=== PATIENT | female | born 1980 | race Caucasian/White ===

== ENCOUNTER 2021-04-09 23:56 | Emergency (ER) | payer MEDICAID ==
[2021-04-10 00:14] VITALS: BP 153/87; PULSE 110
[2021-04-10] MEDS ORDERED: LORazepam 1 MG Tab PO ONE (00:31)
--- NOTE | 2021-04-10 01:07 | EDM.PDOCBH ---
ED HPI GENERAL MEDICAL PROBLEM - General Chief Complaint: Behavioral/Psych Stated Complaint: [facility] Time Seen by Provider: 04/10/21 00:25 Source of Information: Reports: Patient - History of Present Illness INITIAL COMMENTS - FREE TEXT/NARRATIVE: 40 yr old female has been drinking, got in to a bit of an argument with "her girlfriend". Started thinking "bad thoughts" that than went into a panic attack. Still having some numbness of both hands on arrival to ED. No chest pain. Has not otherwise been ill. 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: Reports: Other (see below) Other 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: duoNeb - Related Data Allergies Allergy/AdvReac Type Severity Reaction Status Date / Time Penicillins Allergy Respiratory Verified 04/10/21 00:14 Distress Home Meds: Home Meds Albuterol [Proair HFA] 2 puff INH Q4HR PRN #1 inhaler 12/29/14 [Rx] FLUoxetine [PROzac] 20 mg PO DAILY 04/10/21 [History] QUEtiapine [SEROquel] 100 mg PO DAILY 04/10/21 [History] Testosterone Cypionate [Depo-Testosterone] 200 injection IM WEEKLY 04/10/21 [History] Past Medical History HEENT History: Reports: Other (See Below) Other HEENT History: poor dentition 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: 2 c section Psychiatric History: Reports: Anxiety, Depression, Panic Attack - Past Surgical History Other Musculoskeletal Surgeries/Procedures:: carpal tunnel surgery Social & Family History - Tobacco Use Tobacco Use Status *Q: Never Tobacco User Second Hand Smoke Exposure: No - Caffeine Use Caffeine Use: Reports: Energy Drinks - Recreational Drug Use Recreational Drug Use: No ED ROS GENERAL - Review of Systems Review Of Systems: See Below Constitutional: Reports: No Symptoms HEENT: Reports: No Symptoms Respiratory: Reports: Shortness of Breath (now better) Cardiovascular: Denies: Chest Pain GI/Abdominal: Denies: Abdominal Pain, Nausea, Vomiting Musculoskeletal: Reports: No Symptoms Skin: Reports: No Symptoms Neurological: Reports: Numbness Psychiatric: Reports: Anxiety ED EXAM, BEHAVIORAL HEALTH - Physical Exam Exam: See Below General Appearance: Alert, No Apparent Distress (at time of my exam, no longer hyperventilating like she was on arrival to ED) Eye Exam: Bilateral Eye: PERRL Head: Atraumatic Respiratory/Chest: No Respiratory Distress (at time of my exam) Cardiovascular: Tachycardia GI/Abdominal: Non-Tender Extremities: Normal Inspection. No: Pedal Edema Neurological: Alert, No Motor/Sensory Deficits COURSE, BEHAVIORAL HEALTH COMP - Course Vital Signs: Last Vital Signs Temp 97.0 F 04/10/21 00:06 Pulse 110 H 04/10/21 00:06 Resp 32 H 04/10/21 00:06 BP 153/87 H 04/10/21 00:06 Pulse Ox 96 04/10/21 00:06 Orders, Labs, Meds: Medications Discontinued Medications Generic Name Dose Route Start Last Admin Trade Name Rambo PRN Reason Stop Dose Admin Lorazepam 0.5 mg 04/10/21 00:31 04/10/21 00:40 Lorazepam 1 Mg Tab PO 04/10/21 00:32 0.5 mg ONETIME ONE Administration Departure - Departure Time of Disposition: 01:22 Disposition: Home, Self-Care 01 Clinical Impression: Panic attack Alcohol intoxication Qualifiers: Complication of substance-induced condition: uncomplicated Qualified Code(s): F10.920 - Alcohol use, unspecified with intoxication, uncomplicated - Discharge Information Referrals: Mellisa Villarreal NP [Primary Care Provider] - Forms: ED Department Discharge Additional Instructions: Rest. Continue current meds. Follow up clinic as needed. Sepsis Event Note (ED) - Evaluation Sepsis Screening Result: No Definite Risk - Focused Exam Vital Signs: Vital Signs Temp Pulse Resp BP Pulse Ox 04/10/21 00:06 97.0 F 110 H 32 H 153/87 H 96
== END 2021-04-10 01:25 | disposition home or self-care (01) ==
LOC: JD.ED 23:56
DX: F10.129 Alcohol abuse with intoxication, unspecified (principal); F41.0 Panic disorder [episodic paroxysmal anxiety]; Z88.0 Allergy status to penicillin
CPT/HCPCS: 99284; A9270; 99283

== ENCOUNTER 2021-09-24 00:57 | Emergency (ER) | payer MEDICAID ==
[2021-09-24 01:31] VITALS: BP 154/89; PULSE 103
[2021-09-24] MEDS ORDERED: Ketorolac 15 MG/ML SDV IM ONE (02:00)
[2021-09-24] MEDS ORDERED: Bupivacaine 0.5% 10 ML SDV INJECT ONE (02:11)
[2021-09-24] MEDS ORDERED: Ketorolac 30 MG/ML SDV ONE (02:15)
[2021-09-24] MEDS ORDERED: Ketorolac 30 MG/ML SDV IM ONE (02:16)
== END 2021-09-24 03:12 | disposition home or self-care (01) ==
LOC: JD.ED 00:57
DX: K13.0 Diseases of lips (principal); J45.909 Unspecified asthma, uncomplicated; F17.210 Nicotine dependence, cigarettes, uncomplicated; Z90.49 Acquired absence of other specified parts of digestive tract; Z88.0 Allergy status to penicillin; Z79.899 Other long term (current) drug therapy
CPT/HCPCS: 10060; 87070; 87075; 87205; 96372; 99283; J1885; J3490

== ENCOUNTER 2022-02-27 19:37 | Emergency (ER) | payer MEDICAID ==
[2022-02-27 19:51] VITALS: BP 159/97; PULSE 73
== END 2022-02-27 20:40 | disposition left against medical advice (07) ==
LOC: JD.ED 19:37
DX: Z53.21 Procedure and treatment not carried out due to patient leaving prior to being seen by health care provider (principal)

== ENCOUNTER 2022-02-28 04:38 | Emergency (ER) | payer MEDICAID ==
[2022-02-28 04:52] VITALS: BP 157/106; PULSE 73
[2022-02-28] MEDS ORDERED: HYDROmorphone 1 MG/ML Syringe IM ONE (04:55)
[2022-02-28] MEDS ORDERED: Ketorolac 60 MG/2 ML SDV IM ONE (04:55)
== END 2022-02-28 05:56 | disposition home or self-care (01) ==
LOC: JD.ED 04:38
DX: K02.9 Dental caries, unspecified (principal); J45.909 Unspecified asthma, uncomplicated; Z72.0 Tobacco use; Z79.899 Other long term (current) drug therapy; Z88.0 Allergy status to penicillin
CPT/HCPCS: 64400; 96372; 99283; J1170; J1885

== ENCOUNTER 2022-03-01 01:24 | Emergency (ER) | payer MEDICAID ==
[2022-03-01 01:50] VITALS: BP 171/77; PULSE 59
[2022-03-01] MEDS ORDERED: Bupivacaine 0.5% 10 ML SDV INJECT ONE (01:59)
[2022-03-01] MEDS ORDERED: Lidocaine 1% with EPINEPHrine 1:100,000 10 ML MDV INJECT ONE (01:59)
[2022-03-01] MEDS ORDERED: Lidocaine 4% Top Soln 50 ML Bottle MUCMEM STA (02:36)
== END 2022-03-01 03:20 | disposition left against medical advice (07) ==
LOC: JD.ED 01:24
DX: K08.89 Other specified disorders of teeth and supporting structures (principal); J45.909 Unspecified asthma, uncomplicated; Z98.890 Other specified postprocedural states; Z88.0 Allergy status to penicillin; Z79.899 Other long term (current) drug therapy
CPT/HCPCS: 64400; 99282; A9270; J3490

== ENCOUNTER 2022-12-07 10:59 | Emergency (ER) | payer MEDICAID ==
[2022-12-07] MEDS ORDERED: HYDROmorphone 0.5 MG/0.5 ML Syringe IM ONE (11:22)
[2022-12-07 12:53] VITALS: BP 110/79; PULSE 69
== END 2022-12-07 12:28 | disposition home or self-care (01) ==
LOC: EDSEX 10:59 → JD.ED 10:59
DX: S20.212A Contusion of left front wall of thorax, initial encounter (principal); F17.210 Nicotine dependence, cigarettes, uncomplicated; J45.909 Unspecified asthma, uncomplicated; Z79.899 Other long term (current) drug therapy; Z88.0 Allergy status to penicillin
CPT/HCPCS: 71101; 96372; 99283; J1170; 99282

== ENCOUNTER 2022-12-24 15:36 | Emergency (ER) | payer MEDICAID ==
[2022-12-24 18:01] VITALS: BP 128/78; PULSE 79
== END 2022-12-24 17:00 | disposition home or self-care (01) ==
LOC: JD.ED 15:36
DX: L03.116 Cellulitis of left lower limb (principal); J45.909 Unspecified asthma, uncomplicated; F17.210 Nicotine dependence, cigarettes, uncomplicated; Z88.0 Allergy status to penicillin
CPT/HCPCS: 99283

== ENCOUNTER 2023-12-29 21:53 | Emergency (ER) | payer SELFPAY ==
[2023-12-30 00:42] LABS: BASOPHILS ABSOLUTE AUTO 0.1 K/mm3 (0.0-0.2); BASOPHILS PERCENT AUTO 0.5 % (0.0-1.0); EOSINOPHILS ABSOLUTE AUTO 0.1 K/mm3 (0.0-0.4); EOSINOPHILS PERCENT AUTO 0.7 % (0.0-6.0); HEMATOCRIT 37.9 % (42.0-52.0); HEMOGLOBIN 13.5 gm/dl (14.0-18.0); IMMATURE GRAN ABSOLUTE AUTO 0.06 K/mm3 (0.00-0.05); IMMATURE GRAN PERCENT AUTO 0.5 % (0.0-0.4); LYMPHOCYTES ABSOLUTE AUTO 1.8 K/mm3 (1.0-4.8); LYMPHOCYTES PERCENT AUTO 16.1 % (24.0-44.0); MEAN CORPUSCULAR HEMOGLOBIN 29.9 pg (28.0-32.0); MEAN CORPUSCULAR HGB CONC 35.6 g/dl (32.0-36.0); MEAN PLATELET VOLUME 9.7 fl (9.4-12.4); MONOCYTES ABSOLUTE AUTO 0.7 K/mm3 (0.0-0.8); MONOCYTES PERCENT AUTO 6.7 % (0.0-8.0); NEUTROPHILS ABSOLUTE AUTO 8.4 K/mm3 (1.8-7.7); NEUTROPHILS PERCENT AUTO 75.5 % (41.0-71.0); PLATELET COUNT,PLT 250 K/mm3 (150-400); RED BLOOD CELL COUNT 4.51 M/mm3 (4.52-5.90); WHITE BLOOD CELL COUNT,WBC 11.12 K/mm3 (3.9-11.3)
[2023-12-30] MEDS: Acetaminophen 325 MG Tab PO ONE (00:48)
[2023-12-30 01:06] LABS: INR 1.01; PROTHROMBIN TIME 10.7 SECONDS (9.7-12.0)
[2023-12-30 01:07] LABS: PTT,PARTIAL THROMBOPLSTIN TIME 27.5 SECONDS (21.7-31.4)
[2023-12-30 01:13] LABS: A/G RATIO 1.2 (1-2); ALBUMIN 3.7 g/dl (3.4-5.0); ANION GAP 11.3 (5-15); BILIRUBIN TOTAL 1.2 mg/dL (0.2-1.0); BUN/CREATININE RATIO 11.3 (14-18); CALCIUM 8.6 mg/dL (8.5-10.1); CREATININE 0.8 mg/dL (0.7-1.3); EST CRCL DRUG DOSING (CG) 84.2 mL/min; POTASSIUM,K 3.3 mEq/L (3.5-5.1); PROTEIN TOTAL,TP 6.9 g/dl (6.4-8.2)
[2023-12-30 01:15] LABS: LACTIC ACID 0.4 mmol/L (0.4-2.0)
[2023-12-30] MEDS: Sodium Chloride 0.9% 10 ML Syringe FLUSH ONE (02:11)
[2023-12-30] MEDS: Sodium Chloride 0.9% 1,000 ML IV ONE (02:11)
[2023-12-30] MEDS: Iopamidol 755 Mg/ML 100 ML Bottle IVPUSH ONE (02:21)
[2023-12-30] MEDS: Sodium Chloride 0.9% 10 ML Syringe FLUSH PRN (02:22)
[2023-12-30] MEDS: Potassium Chloride 10 MEQ in Premix Bag 1 BAG IV ONE (04:44)
[2023-12-30] MEDS: Sodium Chloride 0.9% 500 ML ONE (04:50)
[2023-12-30] MEDS: Sodium Chloride 0.9% 500 ML IV ONE (04:52)
[2023-12-30] MEDS: VANCOmycin 1.25 GM/250 ML 1.25 GM in Premix Bag 1 BAG IV ONE (05:35)
[2023-12-30 07:59] VITALS: BP 104/72; PULSE 55
== END 2023-12-30 07:59 | disposition home or self-care (01) ==
LOC: JD.ED 21:53
DX: L03.116 Cellulitis of left lower limb (principal); J45.909 Unspecified asthma, uncomplicated; Z90.49 Acquired absence of other specified parts of digestive tract; Z87.891 Personal history of nicotine dependence; Z79.899 Other long term (current) drug therapy; Z88.0 Allergy status to penicillin
CPT/HCPCS: 36415; 73140; 73201; 80053; 82550; 83605; 85025; 85610; 85730; 87040; 96361; 96365; 96367; 96368; 99284; A9270; J3372; J3480; J3490; J7030; Q9967; J7040